=== PATIENT | female | born 1965 | race Caucasian/White ===

== ENCOUNTER 2025-03-30 06:40 | Day surgery (SDC) | payer OTHER ==
[2025-03-30] MEDS ORDERED: Lactated Ringers 1,000 ML IV ONE (06:41)
[2025-03-30] MEDS ORDERED: Propofol 200 MG/20 ML SDV IV ONE (06:41)
[2025-03-30] MEDS: Lactated Ringers 1,000 ML IV SCH (07:08)
[2025-03-30] MEDS ORDERED: Propofol 200 MG/20 ML SDV ONE ×2 (07:12→09:58)
[2025-03-30 09:59] VITALS: BP 128/62; PULSE 62
== END 2025-03-30 10:11 | disposition home or self-care (01) ==
LOC: DL.ENDO 06:40
PROVIDERS: ATTEND Internal Medicine Gastroenterology
DX: Z12.11 Encounter for screening for malignant neoplasm of colon (principal); K57.30 Diverticulosis of large intestine without perforation or abscess without bleeding; K64.4 Residual hemorrhoidal skin tags; I25.10 Atherosclerotic heart disease of native coronary artery without angina pectoris; I10 Essential (primary) hypertension; E78.00 Pure hypercholesterolemia, unspecified
CPT/HCPCS: 45378; J7120; 00812